=== PATIENT | female | born 1970 | race African-American/Black ===

== ENCOUNTER 2016-08-01 01:49 | Observation (INO) | payer MEDICAID ==
[2016-08-01] MEDS ORDERED: MORPHINE SULFATE 10 MG/ML INJ IV ONE ×2 (02:32→06:01)
[2016-08-01] MEDS ORDERED: NORMAL SALINE 1000 ML 1,000 ML IV ONE (02:32)
[2016-08-01] MEDS ORDERED: ONDANSETRON 4 MG TAB.RAPDIS PO ONE (02:32)
--- NOTE | 2016-08-01 02:33 | ER Document Report ---
ED GI/ - General Chief Complaint: Abdominal Pain Stated Complaint: ABDOMINAL PAIN WITH VOMITING Time Seen by Provider: 08/01/16 02:16 Notes: Patient is a 45-year-old female who comes emergency department for chief complaint of upper abdominal pain with vomiting, symptoms started tonight about an hour or so after dinner. She denies fever. She has vomited about 10 times. She denies history of the same. She denies alcohol use. She denies any surgeries on her belly, denies any medications, only past medical history is orthopedic fractures. TRAVEL OUTSIDE OF THE [place] IN LAST 30 DAYS: No - Related Data Allergies/Adverse Reactions: No Known Allergies Allergy (Unverified 02/03/11 14:50) Past Medical History - General Information source: Patient - Social History Smoking Status: Never Smoker Frequency of alcohol use: None Drug Abuse: None Lives with: Family Family History: Reviewed & Not Pertinent Renal/ Medical History: Denies: Hx Peritoneal Dialysis Musculoskeltal Medical History: Reports Hx Arthritis Past Surgical History: Reports: Hx Orthopedic Surgery - left pelvic Fx - Immunizations Hx Diphtheria, Pertussis, Tetanus Vaccination: Yes - 2010 Review of Systems - Review of Systems Constitutional: No symptoms reported EENT: No symptoms reported Cardiovascular: No symptoms reported Respiratory: No symptoms reported Gastrointestinal: See HPI Genitourinary: No symptoms reported Female Genitourinary: No symptoms reported Musculoskeletal: No symptoms reported Skin: No symptoms reported Hematologic/Lymphatic: No symptoms reported Neurological/Psychological: No symptoms reported Physical Exam - Vital signs Vitals: Temp Pulse Resp BP Pulse Ox 97.4 F 102 H 20 149/99 H 98 08/01/16 01:53 08/01/16 01:53 08/01/16 01:53 08/01/16 01:53 08/01/16 01:53 Interpretation: Normal - General General appearance: Anxious In distress: Moderate - patient in obvious pain and discomfort - HEENT Head: Normocephalic, Atraumatic Eyes: Normal Pupils: PERRL - Respiratory Respiratory status: No respiratory distress Chest status: Nontender Breath sounds: Normal. No: Decreased air movement, Wheezing Chest palpation: Normal - Cardiovascular Rhythm: Regular, Tachycardia Heart sounds: Normal auscultation, S1 appreciated, S2 appreciated Murmur: No - Abdominal Inspection: Normal Distension: No distension Bowel sounds: Normal Tenderness: Tender - epigastric tenderness; otherwise benign abdomen Organomegaly: No organomegaly - Back Back: Normal, Nontender. No: Tender, CVA tenderness - Extremities General upper extremity: Normal inspection, Nontender, Normal color, Normal ROM , Normal temperature General lower extremity: Normal inspection, Nontender, Normal color, Normal ROM , Normal temperature, Normal weight bearing. No: Wayne's sign - Neurological Neuro grossly intact: Yes Cognition: Normal Orientation: AAOx4 Bianca Coma Scale Eye Opening: Spontaneous Terrell Coma Scale Verbal: Oriented Bianca Coma Scale Motor: Obeys Commands Terrell Coma Scale Total: 15 Speech: Normal Motor strength normal: LUE, RUE, LLE, RLE Sensory: Normal - Psychological Associated symptoms: Anxious - Skin Skin Temperature: Warm Skin Moisture: Dry Skin Color: Normal Course - Re-evaluation Re-evalutation: Patient initially in obvious discomfort, significantly improved after meds. Epigastric tenderness on exam. No similar previous history, symptoms came on suddenly. Mild leukocytosis with elevated neutrophils but no bandemia. Chemistry is generally unremarkable with no LFT abnormalities, normal lipase, normal bilirubin. Urinalysis is generally unremarkable. Ultrasound showing gallbladder sludge and debris with no pericholecystic fluid or wall thickening, no ductal dilatation. On reexamination unfortunately patient is uncomfortable again, give Toradol, after Toradol patient still has discomfort. No vomiting. Given small amount of morphine again and now patient's symptoms have resolved. I did discuss all results, patient is requesting to speak with surgery today. Patient no longer has epigastric pain when medicated but this does return. Discussed with Dr. Carson per [facility] protocol. 08/01/16 07:[address] Queen, he will evaluate the patient. Recommends CT abd/pelvis and admit for observation. - Vital Signs Vital signs: Temp Pulse Resp BP Pulse Ox 98.1 F 72 16 125/67 96 08/01/16 05:49 08/01/16 05:49 08/01/16 05:49 08/01/16 05:49 08/01/16 05:49 - Laboratory Result Diagrams: 08/01/16 02:54 08/01/16 02:54 Laboratory results interpreted by me: 08/01/16 08/01/16 08/01/16 02:54 02:54 04:26 WBC 10.7 H MCH 26.5 L RDW 19.1 H Seg Neutrophils % 91.1 H Lymphocytes % 6.1 L Monocytes % 2.4 L Absolute Neutrophils 9.7 H Carbon Dioxide 21 L Glucose 169 H Urine Ketones TRACE H Urine Blood SMALL H Discharge - Discharge Clinical Impression: Epigastric pain, Gallbladder sludge Vomiting Qualifiers: Vomiting type: unspecified Vomiting Intractability: non-intractable Nausea presence: with nausea Qualified Code(s): R11.2 - Nausea with vomiting, unspecified Condition: Stable Disposition: ADMITTED OBSERVATION Admitting Provider: Surgicalist Unit Admitted: Surgical Floor
[2016-08-01 03:13] LABS: ABSOLUTE LYMPHOCYTES (AUTO) 0.7 10^3/uL (0.5-4.7); ABSOLUTE MONOCYTES (AUTO) 0.3 10^3/uL (0.1-1.4); ABSOLUTE NEUT (AUTO) 9.7 10^3/uL (1.7-8.2); BASOPHILS % (AUTO) 0.3 % (0-2); EOSINOPHILS % (AUTO) 0.1 % (0-6); HEMATOCRIT 41.7 % (36.0-47.0); HEMOGLOBIN 13.4 g/dL (12.0-15.5); HGB HCT DIFFERENCE -1.5; LYMPHOCYTES % (AUTO) 6.1 % (13-45); MEAN CORPUSCULAR HEMOGLOBIN 26.5 pg (27.0-33.4); MEAN CORPUSCULAR HGB CONC 32.2 g/dL (32.0-36.0); MEAN CORPUSCULAR VOLUME 82 fl (80-97); MONOCYTES % (AUTO) 2.4 % (3-13); RED BLOOD COUNT 5.07 10^6/uL (3.72-5.28); RED CELL DISTRIBUTION WIDTH 19.1 % (11.5-14.0); SEGMENTED NEUTROPHILS % (AUTO) 91.1 % (42-78); WHITE BLOOD COUNT 10.7 10^3/uL (4.0-10.5)
[2016-08-01 03:18] LABS: ALANINE AMINOTRANSFERASE 23 U/L (9-52); ALBUMIN 4.1 g/dL (3.5-5.0); ALKALINE PHOSPHATASE 90 U/L (38-126); ANION GAP 13 (5-19); ASPARTATE AMINO TRANSFERASE 21 U/L (14-36); BILIRUBIN,DIRECT 0.2 mg/dL (0.0-0.4); BILIRUBIN,TOTAL 0.6 mg/dL (0.2-1.3); BLOOD UREA NITROGEN 10 mg/dL (7-20); CALCIUM 10.2 mg/dL (8.4-10.2); CARBON DIOXIDE 21 mmol/L (22-30); CHLORIDE 104 mmol/L (98-107); CREATININE RESULT 0.96 mg/dL (0.52-1.25); GLUCOSE 169 mg/dL (75-110); LIPASE 120.5 U/L (23-300); POTASSIUM 4.6 mmol/L (3.6-5.0); SODIUM 138.2 mmol/L (137-145); TOTAL PROTEIN 7.9 g/dL (6.3-8.2)
--- NOTE | 2016-08-01 04:45 | RADIOLOGY REPORT (SQ) ---
EXAM DESCRIPTION: U/S ABDOMEN LIMITED W/O DOP COMPLETED DATE/TIME: 08/01/2016 4:25 am REASON FOR STUDY: epigastric pain, vomiting COMPARISON: None. TECHNIQUE: Dynamic and static grayscale images acquired of the abdomen and recorded on PACS. Additio nal selected color Doppler and spectral images recorded. LIMITATIONS: None. FINDINGS: PANCREAS: No masses. Visualized pancreatic duct normal caliber. LIVER: No masses. Echotexture normal. LIVER VASCULATURE: Normal directional flow of the main portal vein and hepatic veins. GALLBLADDER: Small sludge/debris. ULTRASOUND-DETECTED WHITEHEAD'S SIGN: Negative. INTRAHEPATIC DUCTS AND COMMON DUCT: 0.3 cm diameter CBD and intrahepatic ducts normal caliber. No fi lling defects. INFERIOR VENA CAVA: Normal flow. AORTA: Partially obscured. RIGHT KIDNEY: Normal size. Normal echogenicity. No solid or suspicious masses. No hydronephrosis. No calcifications. PERITONEAL AND RIGHT PLEURAL SPACE: No ascites or effusions. OTHER: No other significant findings. IMPRESSION: Small gallbladder sludge/ debris. TECHNICAL DOCUMENTATION: JOB ID: [id number] [employer]- All Rights Reserved
[2016-08-01] MEDS ORDERED: KETOROLAC TROMETHAMINE INJ/PF 30 MG/1 ML SDV IV ONE (05:00)
[2016-08-01 05:06] LABS: APPEARANCE,URINE CLEAR; BILIRUBIN,URINE NEGATIVE (NEGATIVE); GLUCOSE, URINE NEGATIVE (NEGATIVE); KETONES,URINE TRACE mg/dL (NEGATIVE); LEUKOCYTE ESTERASE,URINE NEGATIVE (NEGATIVE); NITRITE,URINE NEGATIVE (NEGATIVE); PROTEIN,URINE NEGATIVE (NEGATIVE); URINE SPECIFIC GRAVITY 1.012; UROBILINOGEN,URINE NEGATIVE mg/dL (<2.0)
[2016-08-01] MEDS ORDERED: NORMAL SALINE 1000 ML 1,000 ML IV PRN (07:25)
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
[2016-08-01] MEDS: NORMAL SALINE 1000 ML 1,000 ML IV PRN ×2 (09:46→18:31)
--- NOTE | 2016-08-01 12:09 | RADIOLOGY REPORT (SQ) ---
EXAM DESCRIPTION: CT ABD/PELVIS WITH IV ORAL COMPLETED DATE/TIME: 08/01/2016 11:08 am REASON FOR STUDY: abdominal pain, vomiting COMPARISON: Abdominal ultrasound dated 08/01/2016 TECHNIQUE: CT scan of the abdomen and pelvis performed using helical scanning technique with dynamic intravenous contrast injection. No oral contrast. Images reviewed with lung, soft tissue, and bone windows. Reconstructed coronal and sagittal MPR images reviewed. Delayed images for evaluation of the urinary system also acquired. All images stored on PACS. All CT scanners at this facility use dose modulation, iterative reconstruction, and/or weight based d osing when appropriate to reduce radiation dose to as low as reasonably achievable (ALARA). [facility]: Dose Right [facility]: CareDose [facility]: Dose Right [facility]: Teradose 4D [facility]: [employer] CONTRAST TYPE AND DOSE: contrast/concentration: Isovue 370.00 mg/ml; Total Contrast Delivered: 100.0 ml; Total Saline Delivered: 72.0 ml RENAL FUNCTION: Creatinine 0.96 RADIATION DOSE: Up-to-date CT equipment and radiation dose reduction techniques were employed. CTDIv ol: 15.9 - 18.0 mGy. DLP: 1683 mGy-cm.. LIMITATIONS: None. FINDINGS: LOWER CHEST: No significant findings. No nodules or infiltrates. LIVER: Normal size. No masses or dilated ducts. SPLEEN: Normal size. No focal lesions. PANCREAS: No masses. No significant calcifications. No adjacent inflammation or peripancreatic fluid collections. Pancreatic duct not dilated. GALLBLADDER: No identified stones by CT criteria. No inflammatory changes to suggest cholecystitis. ADRENAL GLANDS: No significant masses or asymmetry. RIGHT KIDNEY AND URETER: No solid masses. No significant calcifications. No hydronephrosis or hyd roureter. LEFT KIDNEY AND URETER: No solid masses. No significant calcifications. No hydronephrosis or hydr oureter. AORTA AND VESSELS: No aneurysm. No dissection. Renal arteries, SMA, celiac without stenosis. RETROPERITONEUM: No retroperitoneal adenopathy, hemorrhage or masses. BOWEL AND PERITONEAL CAVITY: No masses or inflammatory changes. No free fluid or peritoneal masses. Postsurgical changes are identified in the left upper quadrant presumably related to a gastric bypass procedure. APPENDIX: Not identified PELVIS: There is enlargement of the uterus with heterogeneous density in the uterus on the right pres umably related to uterine fibroids or degenerating fibroids however other etiologies cannot be exclud ed. A 4 cm in diameter cystic mass is identified in the left pelvis presumably ovarian in etiology. Pelvic ultrasound may be of value for further evaluation. ABDOMINAL WALL: A ventral hernia is identified in the periumbilical region containing fat. There is relative increased density within the fat of the ventral hernia which could represent edematous or in flammatory changes. There may be a tiny component of fluid associated with the hernia sac. BONES: No significant or acute findings. OTHER: No other significant finding. IMPRESSION: A ventral hernia is identified in the periumbilical region containing fat is noted above . There is relative increased density within the fat of the ventral hernia which could represent naman matous or inflammatory changes. There may be a tiny component of fluid associated with hernia sac. Clinical correlation is recommended. There is enlargement of the uterus with heterogeneous density i n the uterus on the right presumably related to uterine fibroids a degenerating fibroids however othe r etiologies cannot be excluded. A 4 cm in diameter cystic mass is identified in the left pelvis pre sumably ovarian in etiology. Pelvic ultrasound may be of value for further evaluation. Other findin gs as noted above TECHNICAL DOCUMENTATION: JOB ID: [id number] Quality ID # [id number]: Final reports with documentation of one or more dose reduction techniques (e.g., Au tomated exposure control, adjustment of the mA and/or kV according to patient size, use of iterative reconstruction technique) 2010 [employer]- All Rights Reserved
[2016-08-01] MEDS ORDERED: NA PHOS,M-B/NA PHOS,DI-BA (ADULT) 133 ML ENEMA PR ONE (14:00)
[2016-08-02] MEDS: NORMAL SALINE 1000 ML 1,000 ML IV PRN ×2 (03:03→11:53)
--- NOTE | 2016-08-02 09:13 | PROGRESS NOTE E ---
Progress Note NAME: QUINTEN DOTY : 1970 AGE: 45Y DATE: 08/02/2016 ROOM: 207 SUBJECTIVE: Her abdominal pains are much less this morning. She is able to move her bowels. There is no more nausea or vomiting. She is tolerating her clear liquids though with just a little nausea. OBJECTIVE: On examination, her abdomen is soft with mild tenderness at the mid epigastric area where the midline scar is. The only positive finding is sludge in the gallbladder though at this point, her pains are not at the right upper quadrant. She had a CAT scan last night which showed ventral hernia in the periumbilical region containing fat. I could not palpate the hernia but it is slightly tender where it is supposed to be. She has a lot of soft fatty and redundant skin. 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 We will continue to gradually increase her diet and I will continue to serially exam her. DICTATING PHYSICIAN: KYLER STEINBERG M.D. [id number] PHY#: [id number] ID: [id number] JOB#: [id number] ACCT: [id number] cc: >
[2016-08-02] MEDS ORDERED: GLYCOPYRROLATE INJ 0.4 MG/2 ML VIAL ONE (09:26)
[2016-08-02] MEDS ORDERED: METOCLOPRAMIDE HCL INJ/PF 10 MG/2 ML SDV ONE (09:26)
[2016-08-02] MEDS ORDERED: KETOROLAC TROMETHAMINE 60 MG/2 ML SDV ONE (09:26)
[2016-08-02] MEDS ORDERED: SUCCINYLCHOLINE CHLORIDE INJ 200 MG/10 ML VIAL ONE (09:26)
[2016-08-02] MEDS ORDERED: NEOSTIGMINE METHYLSULFATE 10 MG/10 ML VIAL ONE (09:26)
[2016-08-02] MEDS ORDERED: LIDOCAINE 2% INJ-PF (20 MG/ML) 10 ML AMPUL ONE (09:26)
[2016-08-02] MEDS ORDERED: ROCURONIUM BROMIDE INJ 50 MG/5 ML VIAL IV ONE (09:26)
[2016-08-02] MEDS ORDERED: ONDANSETRON HCL INJ/PF 4 MG/2 ML SDV ONE (09:26)
[2016-08-02] MEDS ORDERED: DEXAMETHASONE SOD PHOSPHATE INJ 4 MG/1 ML VIAL ONE (09:26)
[2016-08-02] MEDS ORDERED: NORMAL SALINE 1000 ML 1,000 ML IV PRN ×2 (12:01→22:07)
[2016-08-02] MEDS ORDERED: MORPHINE SULFATE 10 MG/ML INJ ONE (12:07)
[2016-08-02] MEDS ORDERED: CEFAZOLIN 2 GM/D5W RTU 2 GM/50 ML RTUPB IV ONE (12:30)
[2016-08-02] MEDS ORDERED: MORPHINE SULFATE 10 MG/ML INJ IV ONE (13:00)
[2016-08-02] MEDS ORDERED: MORPHINE SULFATE 10 MG/ML INJ IV PRN (16:03)
[2016-08-02] MEDS ORDERED: PROMETHAZINE HCL INJ 25 MG/1 ML VIAL IV PRN ×2 (16:03)
[2016-08-02] MEDS ORDERED: MEPERIDINE HCL/PF INJ 25 MG/1 ML DISP.SYRIN IV PRN (16:03)
[2016-08-02] MEDS ORDERED: FENTANYL CITRATE INJ/PF 100 MCG/2 ML AMPUL IV PRN ×3 (16:03)
[2016-08-02] MEDS ORDERED: DIPHENHYDRAMINE HCL 50 MG/ML VIAL IV PRN (16:03)
[2016-08-02] MEDS ORDERED: MIDAZOLAM 2 MG/2 ML INJ ONE (16:55)
[2016-08-02] MEDS ORDERED: FENTANYL CITRATE INJ/PF 250 MCG/5 ML AMPULE ONE (16:55)
[2016-08-02] MEDS ORDERED: ACETAMINOPHEN 100 ML IV ONE (16:55)
[2016-08-02] MEDS ORDERED: PROPOFOL INJ 200 MG/20 ML VIAL IV ONE (16:55)
[2016-08-02] MEDS ORDERED: EPHEDRINE SULFATE INJ 50 MG/1 ML AMPULE ONE (16:55)
[2016-08-02] MEDS ORDERED: DEXMEDETOMIDINE INJ 80 MCG/20 ML VIAL IV ONE (16:55)
--- NOTE | 2016-08-02 20:09 | OPERATIVE REPORT E ---
Operative Report NAME: QUINTEN DOTY : 1970 AGE: 45Y DATE OF SURGERY: 08/02/2016 ROOM: 207 PREOPERATIVE DIAGNOSIS: Incarcerated incisional hernia. POSTOPERATIVE DIAGNOSIS: Incarcerated incisional hernia. OPERATION: Reduction of incarcerated incisional hernia and repair with mesh. SURGEON: KYLER STEINBERG M.D. ANESTHESIA: General. INDICATION: This is a 45-year-old female complaining of epigastric pains just above the umbilicus. She had a CAT scan yesterday which showed incarcerated fatty tissue in the incisional hernia. Today patient still complaining of a lot of pains in the epigastric area though quite difficult to palpate a mass or incarceration. Because of this the patient was taken to the or for repair of incarcerated incisional hernia. The patient did have a previous *------* gastric bypass in the past. DESCRIPTION OF PROCEDURE: After adequate general anesthesia, the abdomen was then prepped and draped in the usual sterile fashion. After adequate timeout, a midline incision just above the umbilicus was carried to the mid epigastric area. The hernia sac was then identified and dissected. The sac was dissected all the way down into the fascia. The sac contents were easily reduced at this time. The sac was opened and no evidence of bowel in the sac noted. It appears that she had omentum but still partially adherent to the lower part of the sac close to the fascia. The sac was then divided. Some of the sac was easily dissected underneath the fascia. The defect roughly measured about 3 cm in diameter. A Ventralex mesh about 8 cm in diameter was placed underneath the fascia and sutured to 4 corners with U-stitch of 0 Vicryl. Next the fascial defect was reapproximated in a horizontal fashion with interrupted sutures using 0 Vicryl. The area was subsequently irrigated in saline solution. Next, the space in the subcutaneous area was reapproximated with 3-0 Vicryl and the skin closed with lakhwinder. The patient tolerated the procedure well and brought to recovery room in satisfactory condition. DICTATING PHYSICIAN: KYLER STEINBERG M.D. [id number] PHY#: [id number] ID: [id number] JOB#: [id number] ACCT: [id number] cc:KYLER STEINBERG M.D. >
[2016-08-02] MEDS ORDERED: HYDROMORPHONE HCL INJ/PF 2 MG/ML AMPULE IV PRN ×2 (22:02→22:03)
[2016-08-02] MEDS: CEFAZOLIN 2 GM/D5W RTU 2 GM/50 ML RTUPB IV SCH (22:24)
[2016-08-03] MEDS: CEFAZOLIN 2 GM/D5W RTU 2 GM/50 ML RTUPB IV SCH ×2 (05:45→13:13)
[2016-08-03] MEDS: OXYCODONE-ACETAMINOPHEN 5-325 MG TABLET PO PRN ×2 (13:53→20:34)
[2016-08-03] MEDS ORDERED: ONDANSETRON HCL INJ/PF 4 MG/2 ML SDV IV PRN (15:39)
[2016-08-03] MEDS ORDERED: ONDANSETRON HCL INJ/PF 4 MG/2 ML SDV ONE (15:42)
[2016-08-04] MEDS: OXYCODONE-ACETAMINOPHEN 5-325 MG TABLET PO PRN (08:49)
[2016-08-04 09:04] VITALS: BP 131/71
--- NOTE | 2016-08-06 17:09 | DISCHARGE SUMMARY E ---
Discharge Summary NAME: QUINTEN DOTY : 1970 AGE: 45Y ADMITTED: 08/01/2016 DISCHARGED: 08/03/2016 SUMMARY OF HOSPITALIZATION: The patient is a 45-year-old female who is admitted to the surgical service for acute abdominal pain. She was worked up and evaluated by CT scan of the abdomen and pelvis which revealed an incarcerated ventral wall hernia. The patient was taken to the operating room by Dr. Shashank Napier and underwent open ventral herniorrhaphy with mesh repair. The patient tolerated the procedure well and had no postoperative complications. She was discharged home the following day. The patient was tolerating a light diet. Pain was controlled. FINAL DIAGNOSES: Incarcerated ventral wall hernia status post open repair with mesh, Dr. Napier. DISPOSITION: The patient can be discharged home to the care of the family. Follow up with [facility] in approximately 1 to 2 weeks. She will take Percocet p.r.n. pain. DICTATING PHYSICIAN: MARGARETTE TRAN M.D. [id number] PHY#: [id number] ID: [id number] JOB#: [id number] ACCT: [id number] cc:Jose M ROLON PA >
== END 2016-08-04 09:25 | disposition home or self-care (01) ==
LOC: ER 01:49 → UNDOADMOB 07:53 → EH 07:53 → 2N 08:19 → EH 08:58 → 2N 08:58
PROC: 0WUF0JZ Supplement Abdominal Wall with Synthetic Substitute, Open Approach (ICD-10-PCS; principal; 2016-08-02 17:15)
DX: K43.0 Incisional hernia with obstruction, without gangrene (principal); R73.9 Hyperglycemia, unspecified; K82.8 Other specified diseases of gallbladder; Z98.84 Bariatric surgery status
CPT/HCPCS: 96376; 99285; 96361; 96374; 96375; 36415; 83690; 84703; 85025; 80053; 81001; 88302 ×2; 76705; 74177; 49561; 49568; J2250; J3490 ×6; J1100; J1885 ×2; S0119; J3010; J2765; J2270 ×2; J1170 ×2; J0330; J2405 ×2; J7030 ×2; J2704; J0690 ×2; J0131; 750; G0378